=== PATIENT | female | born 1960 | race Caucasian/White ===

== ENCOUNTER 2016-10-24 14:49 | Emergency (ER) | payer OTHER ==
[~2016-10-24] VITALS: Ht 157.5 cm; Wt 73.5 kg
[2016-10-24 14:55] VITALS: Ht 157.5 cm; Wt 73.5 kg
--- NOTE | 2016-10-24 16:36 | ERD ---
ER Documentation Chief Complaint Date/Time DATE: 10/24/16 TIME: 16:36 Chief Complaint COMPLAINT OF HYPERTENSION HPI 56-year-old female with history of hypertension presents emergency department with elevated blood pressure readings taken by her primary care doctor this morning. She reports she takes losartan as well as 1 of the agent that was additionally last week by her PCP. Blood pressure readings that are written down were 175/120 and 189/127. She reports a frontal headache that is achy, and she has not taken anything for this so far. She has not had any dizziness, chest pain, shortness of breath. ROS All systems reviewed and are negative except as per history of present illness. Allergies Allergies: Coded Allergies: Penicillins (Verified Allergy, Mild, 10/24/16) PMhx/Soc Medical and Surgical Hx: pt denies Surgical Hx History of Surgery: No Anesthesia Reaction: No Hx Neurological Disorder: No Hx Respiratory Disorders: No Hx Cardiac Disorders: Yes (HYPERTENSION) Hx Psychiatric Problems: No Hx Miscellaneous Medical Probl: No Hx Alcohol Use: No Hx Substance Use: No Hx Tobacco Use: No Smoking Status: Never smoker Physical Exam Vitals Vital Signs Date Time Temp Pulse Resp B/P Pulse Ox O2 Delivery O2 Flow Rate FiO2 10/24/16 17:12 77 147/86 10/24/16 14:55 98.2 90 18 139/89 95 Physical Exam General: Well-developed, well-nourished. The patient appears in no acute distress. HEENT: Head is normocephalic, atraumatic. No scleral icterus. Eyes are Ras Neck: Supple. Nontender. Lungs: Clear to auscultation. Normal air movement. Heart: Regular rate and rhythm. S1 and S2 are normal. No murmurs, gallops, or rubs. Abdomen: Soft, nontender, nondistended. Bowel sounds are normoactive. Extremities: No clubbing or cyanosis. Normal pulses. Moving extremities x 4. No weakness. Neurologic: Alert and oriented 3. No focal deficits. Skin: Normal turgor. No rash or lesions. Results 24 hrs Current Medications Medications (Trade) Dose Ordered Sig/[place] Route PRN Reason Start Time Stop Time Status Last Admin Dose Admin Acetaminophen (Tylenol Tab) 650 mg ONCE ONCE PO 10/24/16 17:00 10/24/16 17:01 DC 10/24/16 16:40 Procedures/MDM ED course: Patient was given Tylenol for pain. MDM: 56-year-old female presents with elevated blood pressure readings, with history of hypertension. Differentials also considered include hypertensive urgency, emergency, tension headache, migraine headache, stress induced elevated blood pressure. At triage her BP was 139/89. She does appear to be mildly anxious about this. We gave her Tylenol for the headache, and she was reevaluated. We rechecked her blood pressure, it was approximately the same as when she was in triage. She was reassured, and asked to recheck her blood pressure at home, if she has multiple elevated readings that were similar to the ones in the office she is to return to the emergency department. Otherwise , she may need an additional hypertensive agent, which she may follow-up with her PCP. Patient's blood pressure was elevated (>120/80) but appears stable without evidence of hypertension emergency or urgency. The patient was counseled about the risks of hypertension and urged to pursue outpatient monitoring and therapy within a week with their primary care physician. Departure Diagnosis: Primary Impression: Hypertension Condition: ANNY Davis PA-C Oct 24, 2016 16:36
[2016-10-24] MEDS ORDERED: ACETAMINOPHEN 325 MG TAB PO ONE (17:00)
[2016-10-24 17:12] VITALS: BP 147/86; PULSE 77
== END 2016-10-24 17:34 | disposition home or self-care (01) ==
LOC: FTE 14:49
DX: I10 Essential (primary) hypertension (principal)
CPT/HCPCS: Z7502; Z7610; 99282